=== PATIENT | male | born 1960 | race African-American/Black ===

== ENCOUNTER 2017-05-05 08:20 | Day surgery (SDC) | payer BC ==
[~2017-05-05] VITALS: Ht 177.8 cm; Wt 83.9 kg
[2017-05-05 09:17] LABS: HEMATOCRIT 44.9 % (38.0-50.0); MCH 29.2 PG (29.0-34.0); MCHC 33.2 G/DL (30.0-36.0); MEAN PLAT.VOLUME 8.7 uM^3 (9.0-12.4); PLATELET COUNT 334 K/uL (156-360); RBC DIS.WIDTH-CV 15.4 % (11.8-14.6); RBC DIS.WIDTH-SD 49.8 % (39-53); WHITE BLOOD COUNT 6.2 K/uL (4.1-10.2)
[2017-05-05 09:30] LABS: ADD MIUA? NO; BILIRUBIN NEGATIVE; BLOOD NEGATIVE; COLOR YELLOW ((YELLOW)); GLUCOSE (STRIP) NEGATIVE; KETONES NEGATIVE; LEUKOCYTES NEGATIVE; NITRITE NEGATIVE; PROTEIN (STRIP) NEGATIVE; SPECIFIC GRAVITY 1.025 (1.000-1.030)
[2017-05-05 09:39] VITALS: BP 133/83
[2017-05-05 09:41] LABS: ANION GAP 7 MEQ/L (2-14); CHLORIDE 105 MEQ/L (99-109); POTASSIUM 4.4 MEQ/L (3.7-5.4); SAMPLE HEMOLYSIS CHECK 0; SAMPLE ICTERIC CHECK 0; SAMPLE LIPEMIA CHECK 0; SODIUM 140 MEQ/L (136-147); TOTAL BILIRUBIN 0.4 MG/DL (0.0-1.0)
[2017-05-05 09:47] LABS: ALKALINE PHOSPHATASE 44 IU/L (3-129); GFR ESTIMATE (CALCULATED) > 59 mL/min/; GLUCOSE 128 mg/dL (70-99); UREA NITROGEN (BUN) 14 mg/dL (9-23)
[2017-05-05] MEDS ORDERED: PERCOCET 5/31 TABLET PO (13:09)
[2017-05-05 14:05] VITALS: BP 156/80
[2017-05-05 14:45] VITALS: BP 126/77
== END 2017-05-05 14:47 | disposition home or self-care (01) ==
LOC: SDC 08:20
PROVIDERS: Surgery
PROC: 0JB70ZZ Excision of Back Subcutaneous Tissue and Fascia, Open Approach (ICD-10-PCS; principal; 2017-05-05)
DX: D17.1 Benign lipomatous neoplasm of skin and subcutaneous tissue of trunk (principal); F17.200 Nicotine dependence, unspecified, uncomplicated
CPT/HCPCS: 71020; 80053; 81003; 85027; 88304; 93005; J0330; J0690; J1100; J2250; J2405; J3010; S0020

== ENCOUNTER 2017-11-02 13:36 | Emergency (ER) | payer BC ==
[~2017-11-02] VITALS: Ht 179.1 cm; Wt 85.1 kg
[~2017-11-02 13:36] MED LIST: PERCOCET 5/31 TABLET PO
[2017-11-02] MEDS ORDERED: KEFLEX500 MG PO (16:28)
[2017-11-02 16:36] VITALS: BP 128/85
== END 2017-11-02 16:36 | disposition home or self-care (01) ==
LOC: EME 13:36
PROC: 0H9GXZZ Drainage of Left Hand Skin, External Approach (ICD-10-PCS; principal; 2017-11-02)
DX: L03.012 Cellulitis of left finger (principal); L03.114 Cellulitis of left upper limb
CPT/HCPCS: 99281; 99283